=== PATIENT | male | born 1945 | race Caucasian/White ===

== ENCOUNTER 2022-08-04 16:47 | Inpatient (IN) | payer MEDICARE ==
[~2022-08-04] VITALS: Ht 170.2 cm; Wt 66.0 kg
[2022-08-04] MEDS ORDERED: SODIUM CHLORIDE 0.9% 1000ML 1,000 ML IV STA (16:49)
[2022-08-04] MEDS ORDERED: ALBUTEROL/IPRATROPIUM 3 ML NEB NEB STA (17:19)
[2022-08-04] MEDS: METHYLPREDNISOLONE SOD SUCC 40 MG/ML VIAL 1ML IV SCH (18:00)
[2022-08-04 18:09] LABS: BASOPHILS % 0.1 % (0.0-1.0); HEMATOCRIT 35.4 % (38.2-49.6); HEMOGLOBIN 11.2 g/dL (14.0-18.0); LYMPHOCYTES # (AUTO) 0.2 (1.0-3.2); LYMPHOCYTES % 2.4 % (18.0-39.1); MEAN CORPUSCULAR HEMOGLOBIN 33.1 pg (28-32); MEAN CORPUSCULAR HGB CONC 31.6 g/dL (31-35); MEAN CORPUSCULAR VOLUME 104.7 fL (81-99); MONOCYTES # (AUTO) 0.3 (0.2-0.8); MONOCYTES % 3.5 % (4.4-11.3); NEUTROPHILS # (AUTO) 6.8 (2.1-6.9); NEUTROPHILS % 92.5 % (38.7-80.0); PLATELET COUNT 103 x10e3/uL (140-360); RED BLOOD COUNT 3.38 x10e6/uL (4.3-5.7); RED CELL DISTRIBUTION WIDTH 15.7 % (11.7-14.4)
[2022-08-04 18:27] LABS: ALBUMIN 3.8 g/dL (3.5-5.0); ALBUMIN/GLOBULIN RATIO 1.4 (0.8-2.0); ANION GAP 17.4 mmol/L (8-16); CALCIUM 8.8 mg/dL (8.4-10.2); CREATININE, SERUM 4.3 mg/dL (0.72-1.25); POTASSIUM 3.4 mmol/L (3.5-5.1)
[2022-08-04 18:35] LABS: CREATINE KINASE MB 2.8 ng/mL (0-5.0)
[2022-08-04 18:37] LABS: B-TYPE NATRIURETIC PEPTIDE2 > 5000.0 pg/mL (0-100)
[2022-08-04] MEDS ORDERED: ASPIRIN 325 MG TAB PO ONE (18:45)
[2022-08-04 18:59] LABS: INR 1.19; PROTHROMBIN TIME 15.3 seconds (11.9-14.5)
[2022-08-04 19:00] LABS: PARTIAL THROMBOPLASTIN TIME 27.6 seconds (23.8-35.5)
[2022-08-04] MEDS ORDERED: CLOPIDOGREL BISULFATE 75 MG TAB PO STA (19:24)
[2022-08-04] MEDS ORDERED: HEPARIN 25,000 UNIT 900 UNIT in DEXTROSE 5% 250ML 250 ML IV SCH (19:30)
[2022-08-04] MEDS ORDERED: HEPARIN SOD (PORCINE) 5,000 UNIT/ML VIAL IV ONE (19:30)
[2022-08-04 19:48] LABS: CREATINE KINASE MB 2.6 ng/mL (0-5.0)
[2022-08-04] MEDS ORDERED: HEPARIN 25,000 UNIT DRIP IV ONE (20:31)
[2022-08-04] MEDS ORDERED: IOPAMIDOL 370 MG/ML 100 ML INFUS..BTL INJ ONE (21:15)
[2022-08-04 22:45] VITALS: BP 111/58
[2022-08-04 23:00] VITALS: BP 156/46
[2022-08-04 23:12] VITALS: BP 156/46
[2022-08-05] VITALS (42 sets, daily range): BP systolic 82–153; BP diastolic 21–122
[2022-08-05] MEDS: METHYLPREDNISOLONE SOD SUCC 40 MG/ML VIAL 1ML IV SCH ×3 (01:09→12:56)
[2022-08-05 05:25] LABS: BASOPHILS % 0.3 % (0.0-1.0); HEMATOCRIT 33.7 % (38.2-49.6); HEMOGLOBIN 10.5 g/dL (14.0-18.0); LYMPHOCYTES # (AUTO) 0.2 (1.0-3.2); LYMPHOCYTES % 1.5 % (18.0-39.1); MEAN CORPUSCULAR HEMOGLOBIN 32.9 pg (28-32); MEAN CORPUSCULAR HGB CONC 31.2 g/dL (31-35); MEAN CORPUSCULAR VOLUME 105.6 fL (81-99); MONOCYTES # (AUTO) 0.2 (0.2-0.8); MONOCYTES % 2.1 % (4.4-11.3); NEUTROPHILS # (AUTO) 9.9 (2.1-6.9); NEUTROPHILS % 95.2 % (38.7-80.0); PLATELET COUNT 79 x10e3/uL (140-360); RED BLOOD COUNT 3.19 x10e6/uL (4.3-5.7); RED CELL DISTRIBUTION WIDTH 15.9 % (11.7-14.4)
[2022-08-05 05:45] LABS: ALBUMIN 3.4 g/dL (3.5-5.0); ALBUMIN/GLOBULIN RATIO 1.6 (0.8-2.0); ANION GAP 19.5 mmol/L (8-16); CALCIUM 8.4 mg/dL (8.4-10.2); CREATININE, SERUM 4.74 mg/dL (0.72-1.25); POTASSIUM 3.5 mmol/L (3.5-5.1)
[2022-08-05 05:53] LABS: CREATINE KINASE MB 2.4 ng/mL (0-5.0)
[2022-08-05 12:03] LABS: CREATINE KINASE MB 2.1 ng/mL (0-5.0)
[2022-08-05] MEDS: CLOPIDOGREL BISULFATE 75 MG TAB PO SCH (12:55)
[2022-08-05] MEDS ORDERED: SODIUM CHLORIDE 0.9% 1000ML 2,000 ML IV PRN ×2 (16:15→16:45)
[2022-08-05] MEDS ORDERED: MANNITOL 25% 12.5GM/50 ML VIAL IV PRN (16:45)
[2022-08-05] MEDS ORDERED: ALBUMIN 25% 12.5GM 0.25 GM/ML BTL IV PRN (16:45)
[2022-08-05] MEDS ORDERED: REMDESIVIR 100MG 200 MG in SODIUM CHLORIDE 0.9% 100 ML IV ONE (17:30)
[2022-08-05] MEDS: IPRATROPIUM BROMIDE 0.02% 2.5 ML NEB NEB SCH (19:45)
[2022-08-05] MEDS: ATORVASTATIN 40 MG TAB PO SCH (20:36)
[2022-08-05] MEDS: HEPARIN SOD (PORCINE) 5,000 UNIT/ML VIAL SC SCH (20:37)
[2022-08-05 21:38] LABS: CREATINE KINASE MB 1.9 ng/mL (0-5.0)
[2022-08-06] VITALS (24 sets, daily range): BP systolic 97–164; BP diastolic 26–131
[2022-08-06] MEDS: IPRATROPIUM BROMIDE 0.02% 2.5 ML NEB NEB SCH ×5 (00:15→23:59)
[2022-08-06] MEDS: LEVOTHYROXINE SODIUM 100 MCG TAB PO SCH (04:57)
[2022-08-06 05:57] LABS: BASOPHILS % 0.1 % (0.0-1.0); HEMATOCRIT 33.5 % (38.2-49.6); HEMOGLOBIN 10.4 g/dL (14.0-18.0); LYMPHOCYTES # (AUTO) 0.3 (1.0-3.2); MEAN CORPUSCULAR HEMOGLOBIN 33.3 pg (28-32); MEAN CORPUSCULAR VOLUME 107.4 fL (81-99); MONOCYTES # (AUTO) 0.3 (0.2-0.8); NEUTROPHILS % 88.9 % (38.7-80.0); PLATELET COUNT 87 x10e3/uL (140-360); RED BLOOD COUNT 3.12 x10e6/uL (4.3-5.7); RED CELL DISTRIBUTION WIDTH 16.6 % (11.7-14.4)
[2022-08-06 06:41] LABS: ALBUMIN 3.8 g/dL (3.5-5.0); ALBUMIN/GLOBULIN RATIO 1.5 (0.8-2.0); ANION GAP 17.6 mmol/L (8-16); CREATININE, SERUM 3.2 mg/dL (0.72-1.25); POTASSIUM 4.6 mmol/L (3.5-5.1)
[2022-08-06] MEDS: CLOPIDOGREL BISULFATE 75 MG TAB PO SCH (07:49)
[2022-08-06] MEDS: DEXAMETHASONE 4 MG TAB PO SCH (07:50)
[2022-08-06] MEDS: HEPARIN SOD (PORCINE) 5,000 UNIT/ML VIAL SC SCH (07:54)
[2022-08-06] MEDS ORDERED: ASPIRIN 81 MG ENTERIC COATED PO SCH (09:00)
[2022-08-06] MEDS ORDERED: PLAVIX75 MG PO (09:17)
[2022-08-06] MEDS ORDERED: SYNTHROID100 MCG PO (09:17)
[2022-08-06] MEDS ORDERED: ASPIRIN ENTERI325 MG PO (09:17)
[2022-08-06] MEDS ORDERED: METOPROLOL SUCCINATE 25 MG TAB XL PO ONE (10:30)
[2022-08-06] MEDS: DRONEDARONE 400 MG TAB PO SCH ×2 (10:58→17:11)
[2022-08-06] MEDS: REMDESIVIR 100MG 100 MG in SODIUM CHLORIDE 0.9% 100 ML IV SCH (12:42)
[2022-08-06] MEDS: APIXABAN 5 MG TABLET PO SCH (17:11)
[2022-08-06] MEDS: ATORVASTATIN 40 MG TAB PO SCH ×2 (20:41→20:50)
[2022-08-07] VITALS (17 sets, daily range): BP systolic 68–125; BP diastolic 20–85
[2022-08-07] MEDS: LEVOTHYROXINE SODIUM 100 MCG TAB PO SCH (05:50)
[2022-08-07] MEDS ORDERED: ONDANSETRON HCL INJ 2MG/ML 2ML 2 MG/ML VIAL IV PRN (06:00)
[2022-08-07 06:04] LABS: BASOPHILS % 0.2 % (0.0-1.0); HEMATOCRIT 34.6 % (38.2-49.6); LYMPHOCYTES # (AUTO) 0.8 (1.0-3.2); LYMPHOCYTES % 6.5 % (18.0-39.1); MEAN CORPUSCULAR HEMOGLOBIN 33.5 pg (28-32); MEAN CORPUSCULAR HGB CONC 31.8 g/dL (31-35); MEAN CORPUSCULAR VOLUME 105.5 fL (81-99); MONOCYTES # (AUTO) 0.9 (0.2-0.8); MONOCYTES % 6.9 % (4.4-11.3); NEUTROPHILS # (AUTO) 10.8 (2.1-6.9); NEUTROPHILS % 83.8 % (38.7-80.0); PLATELET COUNT 73 x10e3/uL (140-360); RED BLOOD COUNT 3.28 x10e6/uL (4.3-5.7); RED CELL DISTRIBUTION WIDTH 16.7 % (11.7-14.4)
[2022-08-07 06:34] LABS: ALBUMIN 3.3 g/dL (3.5-5.0); ALBUMIN/GLOBULIN RATIO 1.5 (0.8-2.0); ANION GAP 18.5 mmol/L (8-16); CALCIUM 8.4 mg/dL (8.4-10.2); CREATININE, SERUM 3.88 mg/dL (0.72-1.25); POTASSIUM 4.5 mmol/L (3.5-5.1)
[2022-08-07] MEDS: IPRATROPIUM BROMIDE 0.02% 2.5 ML NEB NEB SCH ×3 (07:14→19:15)
[2022-08-07] MEDS: CLOPIDOGREL BISULFATE 75 MG TAB PO SCH (08:03)
[2022-08-07] MEDS: DRONEDARONE 400 MG TAB PO SCH ×2 (08:04→17:03)
[2022-08-07] MEDS: DEXAMETHASONE 4 MG TAB PO SCH (08:04)
[2022-08-07] MEDS: APIXABAN 5 MG TABLET PO SCH ×2 (08:04→17:03)
[2022-08-07] MEDS: REMDESIVIR 100MG 100 MG in SODIUM CHLORIDE 0.9% 100 ML IV SCH (14:23)
[2022-08-07] MEDS: ATORVASTATIN 40 MG TAB PO SCH (20:15)
[2022-08-08] VITALS (7 sets, daily range): BP systolic 95–128; BP diastolic 25–94
[2022-08-08] MEDS: IPRATROPIUM BROMIDE 0.02% 2.5 ML NEB NEB SCH ×4 (02:15→19:25)
[2022-08-08] MEDS: LEVOTHYROXINE SODIUM 100 MCG TAB PO SCH (05:20)
[2022-08-08 07:36] LABS: BASOPHILS # (AUTO) 0.1 (0.0-0.1); BASOPHILS % 0.4 % (0.0-1.0); HEMATOCRIT 37.8 % (38.2-49.6); HEMOGLOBIN 11.7 g/dL (14.0-18.0); LYMPHOCYTES % 7.5 % (18.0-39.1); MEAN CORPUSCULAR HEMOGLOBIN 33.5 pg (28-32); MEAN CORPUSCULAR VOLUME 108.3 fL (81-99); MONOCYTES # (AUTO) 1.1 (0.2-0.8); MONOCYTES % 8.1 % (4.4-11.3); NEUTROPHILS # (AUTO) 10.8 (2.1-6.9); NEUTROPHILS % 81.4 % (38.7-80.0); PLATELET COUNT 60 x10e3/uL (140-360); RED BLOOD COUNT 3.49 x10e6/uL (4.3-5.7); RED CELL DISTRIBUTION WIDTH 17.1 % (11.7-14.4)
[2022-08-08 08:04] LABS: ANION GAP 20.3 mmol/L (8-16); CALCIUM 8.8 mg/dL (8.4-10.2); CREATININE, SERUM 2.92 mg/dL (0.72-1.25); PHOSPHORUS 5.4 MG/DL (2.3-4.7); POTASSIUM 5.3 mmol/L (3.5-5.1)
[2022-08-08] MEDS: CLOPIDOGREL BISULFATE 75 MG TAB PO SCH (08:17)
[2022-08-08] MEDS: DEXAMETHASONE 4 MG TAB PO SCH (08:17)
[2022-08-08] MEDS: DRONEDARONE 400 MG TAB PO SCH ×2 (08:18→16:28)
[2022-08-08] MEDS: APIXABAN 5 MG TABLET PO SCH ×2 (08:18→16:28)
[2022-08-08] MEDS: REMDESIVIR 100MG 100 MG in SODIUM CHLORIDE 0.9% 100 ML IV SCH (13:00)
[2022-08-08] MEDS ORDERED: SOD POLYSTYRENE SULFONATE SUSP 15 GM/60 ML BTL ONE (13:14)
[2022-08-08] MEDS ORDERED: SOD POLYSTYRENE SULFONATE SUSP 15 GM/60 ML BTL PO ONE (13:30)
[2022-08-08] MEDS: ATORVASTATIN 40 MG TAB PO SCH (20:04)
[2022-08-09] VITALS: BP 117/24
[2022-08-09] MEDS: IPRATROPIUM BROMIDE 0.02% 2.5 ML NEB NEB SCH ×4 (00:50→20:35)
[2022-08-09 04:00] VITALS: BP 93/56
[2022-08-09 04:50] LABS: BASOPHILS % 0.4 % (0.0-1.0); HEMATOCRIT 34.4 % (38.2-49.6); LYMPHOCYTES # (AUTO) 0.7 (1.0-3.2); MEAN CORPUSCULAR HEMOGLOBIN 33.7 pg (28-32); MEAN CORPUSCULAR VOLUME 105.5 fL (81-99); MONOCYTES # (AUTO) 0.7 (0.2-0.8); MONOCYTES % 6.9 % (4.4-11.3); NEUTROPHILS # (AUTO) 7.7 (2.1-6.9); NEUTROPHILS % 81.2 % (38.7-80.0); PLATELET COUNT 59 x10e3/uL (140-360); RED BLOOD COUNT 3.26 x10e6/uL (4.3-5.7); RED CELL DISTRIBUTION WIDTH 16.6 % (11.7-14.4)
[2022-08-09 05:10] LABS: CALCIUM 8.7 mg/dL (8.4-10.2); CREATININE, SERUM 3.66 mg/dL (0.72-1.25)
[2022-08-09] MEDS: LEVOTHYROXINE SODIUM 100 MCG TAB PO SCH (05:37)
[2022-08-09 08:00] VITALS: BP 110/40
[2022-08-09] MEDS: CLOPIDOGREL BISULFATE 75 MG TAB PO SCH (08:24)
[2022-08-09] MEDS: DEXAMETHASONE 4 MG TAB PO SCH (08:24)
[2022-08-09] MEDS: APIXABAN 5 MG TABLET PO SCH (08:25)
[2022-08-09] MEDS: DRONEDARONE 400 MG TAB PO SCH ×2 (08:25→17:30)
[2022-08-09] MEDS ORDERED: ALBUMIN 25% 12.5GM 0.25 GM/ML BTL IV PRN (09:00)
[2022-08-09 11:16] VITALS: BP 110/40
[2022-08-09] MEDS ORDERED: SODIUM CHLORIDE 0.9% 250ML 250 ML ONE ×2 (12:34→17:25)
[2022-08-09] MEDS: REMDESIVIR 100MG 100 MG in SODIUM CHLORIDE 0.9% 100 ML IV SCH (17:31)
[2022-08-09 19:20] VITALS: BP 140/50
[2022-08-09 20:00] VITALS: BP 140/50
[2022-08-09] MEDS: ATORVASTATIN 40 MG TAB PO SCH (21:00)
[2022-08-10] VITALS (7 sets, daily range): BP systolic 106–149; BP diastolic 36–60
[2022-08-10] MEDS: IPRATROPIUM BROMIDE 0.02% 2.5 ML NEB NEB SCH ×4 (01:55→20:25)
[2022-08-10] MEDS: LEVOTHYROXINE SODIUM 100 MCG TAB PO SCH (05:11)
[2022-08-10] MEDS: DRONEDARONE 400 MG TAB PO SCH ×2 (09:05→17:15)
[2022-08-10] MEDS: DEXAMETHASONE 4 MG TAB PO SCH (09:05)
[2022-08-10] MEDS: CLOPIDOGREL BISULFATE 75 MG TAB PO SCH (09:06)
[2022-08-10] MEDS: ATORVASTATIN 40 MG TAB PO SCH ×2 (20:37→20:38)
[2022-08-11] VITALS (9 sets, daily range): BP systolic 100–138; BP diastolic 30–45
[2022-08-11] MEDS: IPRATROPIUM BROMIDE 0.02% 2.5 ML NEB NEB SCH ×4 (02:20→19:38)
[2022-08-11] MEDS: LEVOTHYROXINE SODIUM 100 MCG TAB PO SCH (05:39)
[2022-08-11] MEDS: DEXAMETHASONE 4 MG TAB PO SCH (08:53)
[2022-08-11] MEDS: DRONEDARONE 400 MG TAB PO SCH ×2 (08:54→17:27)
[2022-08-11] MEDS: SEVELAMER CARBONATE 800 MG TAB PO SCH ×3 (08:54→17:24)
[2022-08-11] MEDS: CLOPIDOGREL BISULFATE 75 MG TAB PO SCH (08:55)
[2022-08-11] MEDS ORDERED: APIXAB 2.5 MG TABLET PO SCH (09:00)
[2022-08-11] MEDS: ATORVASTATIN 40 MG TAB PO SCH (21:00)
[2022-08-12] VITALS (8 sets, daily range): BP systolic 94–181; BP diastolic 38–91
[2022-08-12] MEDS: IPRATROPIUM BROMIDE 0.02% 2.5 ML NEB NEB SCH ×4 (01:20→20:05)
[2022-08-12] MEDS: LEVOTHYROXINE SODIUM 100 MCG TAB PO SCH (05:37)
[2022-08-12] MEDS: DEXAMETHASONE 4 MG TAB PO SCH (08:28)
[2022-08-12] MEDS: SEVELAMER CARBONATE 800 MG TAB PO SCH ×4 (08:28→17:00)
[2022-08-12] MEDS: DRONEDARONE 400 MG TAB PO SCH ×2 (08:28→17:22)
[2022-08-12] MEDS ORDERED: SODIUM CHLORIDE 0.9% 1000ML 2,000 ML ONE (10:23)
[2022-08-12 11:44] LABS: BASOPHILS % 0.2 % (0.0-1.0); HEMOGLOBIN 7.6 g/dL (14.0-18.0); LYMPHOCYTES # (AUTO) 0.3 (1.0-3.2); LYMPHOCYTES % 3.2 % (18.0-39.1); MEAN CORPUSCULAR HEMOGLOBIN 33.6 pg (28-32); MEAN CORPUSCULAR VOLUME 101.8 fL (81-99); MONOCYTES # (AUTO) 0.5 (0.2-0.8); MONOCYTES % 4.7 % (4.4-11.3); NEUTROPHILS # (AUTO) 8.8 (2.1-6.9); NEUTROPHILS % 87.4 % (38.7-80.0); PLATELET COUNT 76 x10e3/uL (140-360); RED BLOOD COUNT 2.26 x10e6/uL (4.3-5.7); RED CELL DISTRIBUTION WIDTH 16.8 % (11.7-14.4)
[2022-08-12 12:06] LABS: ALBUMIN 2.9 g/dL (3.5-5.0); ALBUMIN/GLOBULIN RATIO 1.5 (0.8-2.0); ANION GAP 16.5 mmol/L (8-16); CALCIUM 8.1 mg/dL (8.4-10.2); CREATININE, SERUM 3.33 mg/dL (0.72-1.25); POTASSIUM 3.5 mmol/L (3.5-5.1)
[2022-08-12] MEDS ORDERED: ONDANSETRON HCL 4 MG ORAL DISINTEGRATING TAB PO PRN (14:00)
[2022-08-12] MEDS: ATORVASTATIN 40 MG TAB PO SCH ×2 (21:00→23:00)
[2022-08-13] VITALS: BP 124/27
[2022-08-13] MEDS: IPRATROPIUM BROMIDE 0.02% 2.5 ML NEB NEB SCH ×2 (02:40→06:55)
[2022-08-13 04:00] VITALS: BP 124/22
[2022-08-13] MEDS: LEVOTHYROXINE SODIUM 100 MCG TAB PO SCH (06:55)
[2022-08-13 07:30] LABS: BASOPHILS % 0.4 % (0.0-1.0); HEMATOCRIT 26.3 % (38.2-49.6); HEMOGLOBIN 8.4 g/dL (14.0-18.0); LYMPHOCYTES # (AUTO) 0.4 (1.0-3.2); LYMPHOCYTES % 3.9 % (18.0-39.1); MEAN CORPUSCULAR HEMOGLOBIN 35.1 pg (28-32); MEAN CORPUSCULAR HGB CONC 31.9 g/dL (31-35); MONOCYTES # (AUTO) 0.7 (0.2-0.8); MONOCYTES % 6.5 % (4.4-11.3); NEUTROPHILS # (AUTO) 9.5 (2.1-6.9); NEUTROPHILS % 84.9 % (38.7-80.0); RED BLOOD COUNT 2.39 x10e6/uL (4.3-5.7); RED CELL DISTRIBUTION WIDTH 18.3 % (11.7-14.4)
[2022-08-13 07:33] LABS: PLATELET COUNT 84 x10e3/uL (140-360)
[2022-08-13 07:52] LABS: ALBUMIN 3.1 g/dL (3.5-5.0); ALBUMIN/GLOBULIN RATIO 1.3 (0.8-2.0); ANION GAP 18.9 mmol/L (8-16); CALCIUM 8.7 mg/dL (8.4-10.2); CREATININE, SERUM 3.05 mg/dL (0.72-1.25); POTASSIUM 3.9 mmol/L (3.5-5.1)
[2022-08-13 08:42] VITALS: BP 131/32
[2022-08-13 09:00] VITALS: BP 131/32
[2022-08-13] MEDS: DEXAMETHASONE 4 MG TAB PO SCH (09:18)
[2022-08-13] MEDS: SEVELAMER CARBONATE 800 MG TAB PO SCH ×2 (09:18→12:39)
[2022-08-13] MEDS: DRONEDARONE 400 MG TAB PO SCH (09:18)
[2022-08-13] MEDS ORDERED: AMIODARONE HCL 200 MG TAB PO SCH (12:00)
[2022-08-13 12:36] VITALS: BP 125/30
[2022-08-13] MEDS ORDERED: APIXAB 2.5 MG TABLET PO SCH (17:00)
== END 2022-08-13 14:50 | DRG 177 ==
LOC: ER 16:52 → ERHOLD 20:00 → ICU 22:51 → MED/SURG3 08-09 15:50
PROVIDERS: ADMIT Internal Medicine; ATTEND Internal Medicine
PROC: 8E0ZXY6 Isolation (ICD-10-PCS; 2022-08-04)
PROC: XW033E5 Introduction of Remdesivir Anti-infective into Peripheral Vein, Percutaneous Approach, New Technology Group 5 (ICD-10-PCS; principal; 2022-08-05)
PROC: 5A1D70Z Performance of Urinary Filtration, Intermittent, Less than 6 Hours Per Day (ICD-10-PCS; 2022-08-05)
PROC: 5A09457 Assistance with Respiratory Ventilation, 24-96 Consecutive Hours, Continuous Positive Airway Pressure (ICD-10-PCS; 2022-08-06)
PROC: 30233K1 Transfusion of Nonautologous Frozen Plasma into Peripheral Vein, Percutaneous Approach (ICD-10-PCS; 2022-08-09)
DX: U07.1 COVID-19 (principal); I21.A1 Myocardial infarction type 2; N18.6 End stage renal disease; J96.21 Acute and chronic respiratory failure with hypoxia; I50.43 Acute on chronic combined systolic (congestive) and diastolic (congestive) heart failure; J12.82 Pneumonia due to coronavirus disease 2019; E44.0 Moderate protein-calorie malnutrition; I13.2 Hypertensive heart and chronic kidney disease with heart failure and with stage 5 chronic kidney disease, or end stage renal disease; I42.9 Cardiomyopathy, unspecified; J44.9 Chronic obstructive pulmonary disease, unspecified; I25.10 Atherosclerotic heart disease of native coronary artery without angina pectoris; E11.22 Type 2 diabetes mellitus with diabetic chronic kidney disease; Z99.2 Dependence on renal dialysis; Z79.4 Long term (current) use of insulin; Z95.1 Presence of aortocoronary bypass graft; D64.9 Anemia, unspecified; Z20.822 Contact with and (suspected) exposure to COVID-19; Z68.22 Body mass index [BMI] 22.0-22.9, adult; E78.5 Hyperlipidemia, unspecified; Z79.01 Long term (current) use of anticoagulants; Z95.2 Presence of prosthetic heart valve; Z86.73 Personal history of transient ischemic attack (TIA), and cerebral infarction without residual deficits; Z85.118 Personal history of other malignant neoplasm of bronchus and lung; Z99.81 Dependence on supplemental oxygen; E78.00 Pure hypercholesterolemia, unspecified; G47.33 Obstructive sleep apnea (adult) (pediatric); E03.9 Hypothyroidism, unspecified; I48.0 Paroxysmal atrial fibrillation; E11.69 Type 2 diabetes mellitus with other specified complication
CPT/HCPCS: 36415; 71045; 71260; 80048; 80053; 82550; 82553; 83605; 83735; 83880; 84100; 84484; 85025; 85610; 85730; 86706; 86900; 87040; 87070; 87205; 87340; 93005; 93306; 94640; 94799; 99252; 99285; J0248; J1644; J2405; J2543; J2920; J7030; J7050; P9017; Q9967